=== PATIENT | female | born 1950 | race Caucasian/White ===

== ENCOUNTER 2019-02-13 07:22 | Inpatient (IN) ==
[2019-02-07 12:18] LABS: Basophils # (Auto) 0 K/mcL (0.0-0.3); Basophils % (Auto) 0.4 % (0.0-2.0); Eosinophils # (Auto) 0.2 K/mcL (0.0-0.7); Eosinophils % (Auto) 3.9 % (0.0-7.0); Hemoglobin 14.2 g/dL (12.0-15.0); Lymphocytes # (Auto) 1.5 K/mcL (1.5-4.8); Lymphocytes % (Auto) 37.8 % (15.5-49.0); Mean Cell Volume 95.7 fL (80.0-100.0); Mean Corpuscular HGB Conc 33.9 g/dL (31.0-36.0); Mean Platelet Volume 7.2 fL (7.4-10.4); Monocytes # (Auto) 0.3 K/mcL (0.1-0.9); Monocytes % (Auto) 6.9 % (1.0-12.0); Platelet Count 199 K/mcL (140-440); RBC 4.38 M/mcL (4.00-5.20); Red Cell Distribution Width 12.4 % (11.5-14.5); WBC 4.1 K/mcL (4.5-11.0)
[2019-02-07 12:22] LABS: Appearance,Urine CLEAR; Bilirubin,Urine NEG (NEG); Color,Urine STRAW; Glucose,Urine (UA) NEGATIVE (NEG); Ketones,Urine NEG (NEG); Leukocyte Esterase,Urine NEG /uL (NEG); Nitrate,Urine NEG (NEG); Protein,Urine NEG (NEG); Specific Gravity,Urine 1.004 (1.000-1.035); Urine Blood NEG mg/dL (<0.03); Urobilinogen,Urine NEG (NEG)
[2019-02-07 12:46] LABS: Blood Urea Nitrogen 15 mg/dl (8-23); Calcium 9.5 mg/dl (8.6-10.4); Carbon Dioxide 24 mmol/L (22-30); Chloride 104 mmol/L (96-108); Glomerular Filtration Rate 67; Glucose 85 mg/dL (70-105)
[2019-02-07 13:02] LABS: Estimated Average Glucose(eAG) 114 mg/dL; Hemoglobin A1C 5.6 % HGB (4.0-6.0)
[~2019-02-13 07:22] MED LIST: 0.9 % SODIUM CHLORIDE 9 ML, KETOROLAC 30 MG, ROPIVACAINE HCL/PF 49.5 ML, EPINEPHrine 0.... IJ SCH; CELECOXIB 200 MG CAPSULE PO SCH; IPRATROPIUM/ALBUTEROL 3 ML AMPUL.NEB NEB PRN; PREGABALIN 75 MG CAPSULE PO SCH; SCOPOLAMINE 1 PATCH PATCH TOPICAL PRN; ceFAZolin 2 GM in DEXTROSE 5% IN WATER 50 ML IV SCH; oxyCODONE 10 MG TAB.ER.12H PO SCH
[2019-02-13] MEDS ORDERED: ONDANSETRON 4 MG/2 ML VIAL IV ONE (09:25)
[2019-02-13] MEDS ORDERED: KETAMINE 100 MG/ML ML IV ONE (09:25)
[2019-02-13] MEDS ORDERED: ROPIVACAINE HCL/PF 20 ML VIAL IJ ONE (09:25)
[2019-02-13] MEDS ORDERED: TRANEXAMIC ACID 1,000 MG/10 ML VIAL IV ONE ×2 (09:25→11:07)
[2019-02-13] MEDS ORDERED: GLYCOPYRROLATE 0.2 MG/ML VIAL IV ONE (09:25)
[2019-02-13] MEDS ORDERED: PROPOFOL 200 MG/20 ML VIAL IV ONE (09:25)
[2019-02-13] MEDS ORDERED: LIDOCAINE HCL/PF 100 MG/5 ML SYRINGE IV ONE (09:25)
[2019-02-13] MEDS ORDERED: ePHEDrine 50 MG/ML AMPUL IV ONE (09:25)
[2019-02-13] MEDS ORDERED: DEXAMETHASONE 10 MG/ML VIAL IV ONE (09:25)
[2019-02-13] MEDS ORDERED: fentaNYL 100 MCG/2 ML VIAL IV PRN (11:03)
[2019-02-13] MEDS ORDERED: NALOXONE HCL 0.4 MG/ML VIAL IV PRN (11:03)
[2019-02-13] MEDS ORDERED: FLUMAZENIL 0.1 MG/ML ML IV PRN (11:03)
[2019-02-13] MEDS ORDERED: diphenhydrAMINE 50 MG/ML VIAL IV PRN (11:03)
[2019-02-13] MEDS ORDERED: ACETAMINOPHEN 1,000 MG/100 ML BOTTLE IV ONE (11:03)
[2019-02-13] MEDS ORDERED: PROMETHAZINE 25 MG/ML VIAL IV PRN (11:03)
[2019-02-13] MEDS ORDERED: ONDANSETRON 4 MG/2 ML VIAL IV PRN ×2 (11:03→11:07)
[2019-02-13] MEDS ORDERED: IPRATROPIUM/ALBUTEROL 3 ML AMPUL.NEB NEB PRN (11:03)
[2019-02-13] MEDS ORDERED: BENZOCAINE/MENTHOL 1 LOZENGE PO PRN ×2 (11:03→11:07)
[2019-02-13] MEDS ORDERED: MEPERIDINE 25 MG/ML SYRINGE IV PRN (11:03)
[2019-02-13] MEDS ORDERED: LACTATED RINGERS 250 ML IV PRN (11:03)
[2019-02-13] MEDS ORDERED: FLEETS ADULT ENEMA PR PRN (11:07)
[2019-02-13] MEDS ORDERED: MAGNESIUM HYDROXIDE 30 ML ORAL.SUSP PO PRN (11:07)
[2019-02-13] MEDS ORDERED: POLYETHYLENE GLYCOL 3350 17 GM PACKET PO PRN (11:07)
[2019-02-13] MEDS ORDERED: BISACODYL 10 MG SUPP.RECT PR PRN (11:07)
--- NOTE | 2019-02-13 11:07 | Brief Operative Note ---
Date of procedure: 02/13/19 Pre-op diagnosis: Right knee severe osteoarthritis Post-op diagnosis: same Procedure: Right robotic assisted total knee arthroplasty Grafts/Implants: Yes (Iglesia Triathlon CR 4 femur, 4 tibia, 11 CS insert, 33 patella) Anesthesia: spinal, GLMA Findings: severe arthritis Complications: none Surgeon: Moises Colon Reading Aide: Ramon Gauthier Estimated blood loss (cc): 30 Specimens Removed/Pathology: none sent Condition: stable Disposition: PACU
[2019-02-13] MEDS ORDERED: traMADol 50 MG TABLET PO PRN (11:11)
[2019-02-13] MEDS ORDERED: LACTATED RINGERS 1,000 ML IV SCH (11:15)
--- NOTE | 2019-02-13 12:25 | XRay Report ---
CLINICAL INFORMATION: Postsurgical follow-up TECHNIQUE: AP, crosstable lateral, patellar views COMPARISON: None. FINDINGS: Status post left total knee arthroplasty. Anatomic alignment demonstrated. There is mild postsurgical soft tissue and intra-articular gas. There are skin jesus anteriorly IMPRESSION: Status post left total knee arthroplasty Interpreted and Authenticated by: Luke oWods 02/13/19
[2019-02-13] MEDS: 0.9 % SODIUM CHLORIDE 1,000 ML IV SCH ×2 (13:03→22:25)
[2019-02-13] MEDS: KETOROLAC 30 MG/ML VIAL IV SCH ×3 (13:04→23:28)
[2019-02-13] MEDS: 0.9 % SODIUM CHLORIDE 10 ML SYRINGE IV SCH ×2 (14:17→21:44)
[2019-02-13] MEDS: HYDROmorphone 2 MG/ML VIAL IV PRN ×2 (16:00→23:29)
[2019-02-13] MEDS: ceFAZolin 1 GM VIAL IV SCH (17:47)
[2019-02-13] MEDS: oxyCODONE/APAP 5/325MG TABLET PO PRN ×2 (17:48→21:50)
[2019-02-13] MEDS ORDERED: CALCIUM (OYSTER SHELL) 500 MG TABLET PO SCH (21:00)
[2019-02-13] MEDS ORDERED: LATANOPROST OPHTH DROPS 2.5ML BOTTLE OU SCH (21:00)
[2019-02-13] MEDS ORDERED: MAGNESIUM OXIDE 400 MG TABLET PO SCH (21:00)
[2019-02-13] MEDS ORDERED: SENNOSIDES 1 TABLET PO SCH (21:00)
[2019-02-13] MEDS ORDERED: ASPIRIN 325 MG ENTERIC COATED TABLET PO SCH (21:00)
[2019-02-13] MEDS ORDERED: CYANOCOBALAMIN (VITAMIN B-12) 500 MCG TABLET PO SCH (21:00)
[2019-02-13] MEDS ORDERED: VITAMIN D3 1,000 UNIT TABLET PO SCH (21:00)
[2019-02-13] MEDS ORDERED: FOLIC ACID 1 MG TABLET PO SCH (21:00)
[2019-02-13] MEDS: BRIMONIDINE OPHTH DROPS 1 GTT BOTTLE 5ML OU SCH (21:12)
[2019-02-13] MEDS: DOCUSATE SODIUM 100 MG CAPSULE PO SCH (21:42)
[2019-02-13] MEDS: ASPIRIN 81 MG TAB.CHEW PO SCH (22:33)
[2019-02-14] MEDS: ceFAZolin 1 GM VIAL IV SCH (00:53)
[2019-02-14] MEDS: 0.9 % SODIUM CHLORIDE 10 ML SYRINGE IV SCH (05:24)
[2019-02-14] MEDS: KETOROLAC 30 MG/ML VIAL IV SCH ×2 (05:24→12:47)
[2019-02-14] MEDS: 0.9 % SODIUM CHLORIDE 1,000 ML IV SCH (07:29)
[2019-02-14] MEDS: oxyCODONE/APAP 5/325MG TABLET PO PRN ×2 (07:36→12:53)
--- NOTE | 2019-02-14 07:37 | Discharge Summary ---
Providers - Providers Patient information: Note initiated : 02/14/19 at 7:34 am Service Date, if different from initiated Date: [] Patient: Armida Jama 68 y/o F admitted on 02/13/19 for Right Total Knee Arthroplasty. Chief Complaint: [] Discharge date: 02/14/19 Hospitalization Hospital Course: Pt was admitted for a R TKA. Pt underwent the procedure on the michael of admission. Pt was transferred to the floor for IV pain meds, IV abx, and PT. Pt discharged post-op day 1. Will f/u in 2 weeks. Will take ASA for DVT prophylaxis. Discharge diagnosis: R knee OA Exam - Exam Clean and dry: Yes Weight bearing status: as tolerated Ortho Discharge - TKA - Patient Instructions Diet: Regular Diet Activity: activity as tolerated Total Knee Protocol: For Total Knee: Start ROM YANA with stationary bike or rocking chair. Work on gaining full extension of knee. Posterior dislocation precautions provided. Hip abductor strengthening and gait training instructions provided. Apply Cryocuff as instructed. Dressing Care: May shower in 2 days - Follow Up Plan Disposition: Home, Self-Care Prognosis: Good Rehab Potential: Good Overall status at discharge: patient is back to baseline - Orders For Discharge Prescriptions: Aspirin 81 mg PO BID #30 tab.chew Transmission Status[facility] HYDROcodone/APAP 10/325MG [[employer] 10-325Mg] 1 - 2 tab PO Q4H PRN #90 tab PRN Reason: Pain Prescription Printed Pending Studies Resuscitation Status Full Code Diet Consistent Carbohydrate Diet Start MonFeb 13 110 Aspirin (Aspirin) 81 mg PO BID [facility] Last Admin: 02/13/19 22:33 Dose: 81 mg Documented by: ANA Brimonidine Tartrate (Alphagan P Ophth Drops) 1 gtt OU BID [facility] Last Admin: 02/13/19 21:12 Dose: 1 gtt Documented by: ANA Calcium Carbonate/Glycine (Oscal) 1,500 mg PO [facility] Last Admin: 02/13/19 21:13 Dose: 1,500 mg Documented by: ANA Cyanocobalamin (Vitamin B-12) 5,000 mcg PO [facility] Last Admin: 02/13/19 21:42 Dose: 5,000 mcg Documented by: ANA Docusate Sodium (Colace) 100 mg PO BID [facility] Last Admin: 02/13/19 21:42 Dose: Not Given Documented by: ANA Folic Acid (Folic Acid) 0.5 mg PO [facility] Last Admin: 02/13/19 21:15 Dose: 0.5 mg Documented by: ANA Hydromorphone HCl (Dilaudid) 0 mg IV Q2HP PRN PRN Reason: PAIN LEVEL > 6 Last Admin: 02/13/19 23:29 Dose: 0.5 mg Documented by: Admin: 02/13/19 16:00 Dose: 0.5 ml Documented by: JEWEL Sodium Chloride (Sodium Chloride 0.9%) 1,000 mls @ 100 mls/hr IV .Q10H [facility] Last Admin: 02/14/19 07:29 Dose: Not Given Documented by: Infusion: 02/14/19 05:51 Dose: 0 mls/hr Documented by: Admin: 02/13/19 22:25 Dose: 100 mls/hr Documented by: Infusion: 02/13/19 22:25 Dose: 100 mls/hr Documented by: Admin: 02/13/19 13:03 Dose: 100 mls/hr Documented by: JEWEL Ketorolac Tromethamine (Toradol) 30 mg IV Q6 [facility] Stop: 02/15/19 06:01 Last Admin: 02/14/19 05:24 Dose: 30 mg Documented by: Admin: 02/13/19 23:28 Dose: 30 mg Documented by: Admin: 02/13/19 17:47 Dose: 30 mg Documented by: Admin: 02/13/19 13:04 Dose: 30 mg Documented by: JEWEL Latanoprost (Xalatan Ophth Drops) 1 gtt OU [facility] Last Admin: 02/13/19 21:15 Dose: 1 gtt Documented by: ANA Magnesium Oxide (Magnesium Oxide) 1,200 mg PO [facility] Last Admin: 02/13/19 21:14 Dose: 1,200 mg Documented by: ANA Oxycodone/Acetaminophen (Percocet 5-325 Mg) 0 tab PO Q4HP PRN PRN Reason: PAIN LEVEL 3-6 Last Admin: 02/13/19 21:50 Dose: 2 tab Documented by: Admin: 02/13/19 17:48 Dose: 1 tab Documented by: JEWEL Edmondson (Senokot) 2 tab PO [facility] Last Admin: 02/13/19 21:15 Dose: 2 tab Documented by: ANA Sodium Chloride (Saline Flush) 10 ml IV Q8 [facility] Last Admin: 02/14/19 05:24 Dose: Not Given Documented by: Admin: 02/13/19 21:44 Dose: Not Given Documented by: Admin: 02/13/19 14:17 Dose: Not Given Documented by: JEWEL Tramadol HCl (Ultram) 50 mg PO BIDP PRN PRN Reason: Pain Last Admin: 02/14/19 01:00 Dose: 50 mg Documented by: ANA Vitamin D (Vitamin D3) 2,000 unit PO [facility] Last Admin: 02/13/19 21:14 Dose: 2,000 unit Documented by: ANA Shift Summary 02/14/19 03:28 Shift Summary by Alfonzo Lan Patient is alert and oriented times four. Had right total knee arthroplasty done. Dressing to the knee CDI. complained of pain. medicated pain with 0.5mg of dilaudid *1, 2tabs of Percocet 5-325 *1 and 1tab of tramadol 50mg *1 with good effect. Gets Toradol given Q6hrs. Last dose of Ancef given. Cold therapy on and off. Patient ambulated in bhagat way this shift. Pt is up with assist and a walker. Voiding with good out put. Bladder scanned patient for 0ml. Vital signs stable. Slept for about 4hrs. Iv to the left arm infusing 100mls/hr of normal saline. Patient is pleasant and cooperative, and able to make needs known. Initialized on 02/14/19 03:28 - END OF NOTE
--- NOTE | 2019-02-14 08:00 | Operative Note ---
DATE OF OPERATION: 02/13/2019 PREOPERATIVE DIAGNOSIS: Right knee severe osteoarthritis. POSTOPERATIVE DIAGNOSIS: Right knee severe osteoarthritis. PROCEDURE PERFORMED: Right robotic-assisted total knee arthroplasty placing a Iglesia Triathlon size 4 cruciate retaining femoral component, size 4 tibial baseplate, 11 mm CS tibial insert with a 33 mm patellar button. SURGEON: Moises Colon MD RECREATION PROGRAM COORDINATOR: Jarrod Gauthier PA-C. This provider's expertise and technical skill were required throughout the case. The PA assisted with preoperative coordination, intraoperative retraction, wound closure, dressing and splint application, as well as postoperative documentation and care coordination. ANESTHESIA: Spinal plus general. DRAINS: None. SPECIMENS: Bone cuts, which were discarded. BLOOD LOSS: 30 mL COMPLICATIONS: None. POSTOPERATIVE CONDITION: Stable. INDICATIONS FOR SURGERY: This is a 68-year-old female who has had longstanding progressive worsening severe left knee pain. Radiographs showed severe [id number] osteoarthritis. FINDINGS AT SURGERY: She had severe arthritis with a 20 degree flexion contracture. Post-procedure showed good limb alignment, patellar tracking, and joint stability. PROCEDURE IN DETAIL: The patient had been seen preoperatively. Informed consent had been obtained after discussion of possible surgery. Risks including, but not limited to, bleeding, possibly requiring transfusion; infection, possibly requiring implant removal and prolonged IV antibiotics; injury to nerves, blood vessels other surrounding structures; anesthetic risks; incomplete or no resolution of symptoms; stiffness; swelling; pain; instability; DVT and pulmonary embolus risks; and the possibility of needing further revision surgery. She understood and wished to proceed. Correct operative site was marked and patient was given spinal anesthesia. She was then taken to the operating room and LMA general given. Right lower extremity was carefully prepped and draped in normal sterile fashion and a timeout was performed verifying patient name, operative site, and plan. Esmarch was used to exsanguinate the extremity and tourniquet was inflated. We had covered all skin surfaces with Ioban. A midline incision was made with a scalpel through skin and subcutaneous tissue. IrriSept was irrigated and then a medial parapatellar arthrotomy made. Subperiosteal exposure was done of the anterior medial tibia. Retropatellar fat pad was excised. ACL was transected and anterior horns of menisci scar were removed. We did a preliminary resection of the patella freehand. Prior to resection her patellar thickness was 21. The cup protector was placed. We then placed a femoral and tibial checkpoint. Two stab incisions were made over the femur and two over the tibia and bicortical pins were placed and the arrays were connected. We then did our hip center of rotation check. Green probe was used to identify the medial and lateral malleoli, as well as two double checks for our checkpoints. The blue probe was then used to do our mapping. Once this was completed, we used a rongeur to remove osteophytes. The spoons were then used to check our flexion, extension gap and we adjusted implant position until we had 17 mm gaps medially and laterally in flexion and extension. ____ in 1 degree of varus on the tibia and 3 degrees of varus on the femur. Once we verified we had good component positioning we then used the robotic arm and saw to make our bone cuts. Tibia was then prepared, externally rotating the trial as bone coverage would allow. This was pinned into place. Boss reamer and keel punch were used to prepare and then a keeled tibial trial was placed. Femur was elevated and curved osteotome used to remove osteophytes along with a curved curet. We then placed the femoral component and pinned this in place. Peg holes were drilled and a 9 insert trial was placed. It was taken into extension and we could get into full. We them prepared the patella, medializing maximally. Size 33 was the best fit. Holes were drilled and then a trial placed. Lateral facetectomy was performed. Post-resection thickness implant was between 20 and 21 mm. We then checked our patellar tracking and there was good patellar tracking without tilt or subluxation. We then opened our implants and trial implants removed. We filled the joint with IrriSept; after a minute we copiously pulse lavaged with saline. Antibiotic Pal[place] cement was mixed. We then used the CO2 gun to clean and dry the cancellous bone surfaces and then ___ ___ pericapsular subcutaneous tissues. The arrays were removed and pins were as well. After cement had fully hardened, we flexed the knee up and did a final inspection ____. We then removed the insert trial and pain cocktail was injected in the posterior capsule. She was hyperextending prior to our removal of the so I chose to increase her to an 11 thickness and switch her to ___. ____ irrigated on the tray and then was impacted . The knee was taken through range of motion and did not hyperextend. We then copiously cleaned the joint with IrriSept; after a minute pulse lavaged with saline. Sterile dressings were applied. Tourniquet was released. The patient was awakened, extubated, and transferred to recovery in stable condition. BJClair:areli Job ID: [id number] Doc ID: [id number] Moises Colon MD
[2019-02-14] MEDS: BRIMONIDINE OPHTH DROPS 1 GTT BOTTLE 5ML OU SCH (08:17)
[2019-02-14] MEDS: ASPIRIN 81 MG TAB.CHEW PO SCH (08:17)
[2019-02-14] MEDS: DOCUSATE SODIUM 100 MG CAPSULE PO SCH (08:17)
[2019-02-14] MEDS: LISINOPRIL 10 MG TABLET PO SCH ×2 (08:18→08:24)
[2019-02-14] MEDS ORDERED: PYRIDOSTIGMINE 60 MG TABLET PO SCH (09:00)
[2019-02-14] MEDS ORDERED: SERTRALINE 50 MG TABLET PO SCH (09:00)
== END 2019-02-14 13:25 | disposition home or self-care (01) | DRG 470 ==
LOC: MEDSUR 07:22
PROVIDERS: ADMIT Orthopaedic Surgery; ATTEND Orthopaedic Surgery